=== PATIENT | male | born 1990 | race Caucasian/White ===

== ENCOUNTER 2020-03-02 10:49 | Emergency (ER) | payer BC, OTHER ==
--- NOTE | 2020-03-02 12:22 | TELE ---
HPI Do you have fever,cough or shortness of breath?: No - General Reason For Visit: VIRTUAL VISIT Past History - Travel History Traveled outside of the country in the last 30 days: No Close contact w/someone who was outside of country & ill: No Review of Systems - Review of Systems Able to Perform ROS?: Yes Comments:: 03/02/20 12:44 CONSTITUTIONAL: Absent: fever, chills, diaphoresis, generalized weakness, malaise, loss of appetite HEENT: Absent: rhinorrhea, nasal congestion, throat pain, throat swelling, difficulty swallowing, mouth swelling, ear pain, eye pain, visual Changes CARDIOVASCULAR: Absent: chest pain, loss of consciousness, palpitations, irregular heart rate, peripheral edema RESPIRATORY: Absent: cough, shortness of breath, dyspnea with exertion, orthopnea, wheezing, stridor, hemoptysis GASTROINTESTINAL: Absent: abdominal pain, abdominal distension, nausea, vomiting, diarrhea, constipation, melena, hematochezia SKIN: Absent: rash, itching, pallor NEUROLOGIC: Absent: headache, focal weakness or paresthesias, dizziness, unsteady gait, seizure, mental status changes, bladder or bowel incontinence PSYCHIATRIC: Absent: anxiety, depression, suicidal or homicidal ideation, hallucinations. Limited [place] Citizen proficient: No *Physical Exam - Physical Exam 03/02/20 12:44 GENERAL: Well developed, well nourished. Awake and alert. No acute distress. HEENT: Normocephalic, atraumatic. PERRLA, EOMI. NECK: Supple. Full ROM. PULMONARY: No evidence of respiratory distress. EXTREMITIES: No cyanosis. SKIN: Warm and dry. Normal capillary refill. No rashes. No jaundice. NEUROLOGICAL: Alert, awake, appropriate. PSYCHIATRIC: Cooperative. Good eye contact. Appropriate mood and affect. - Medical Decision Making 03/02/20 12:21 Back line chat initiated and message left on patient's cell phone. No answer at this time. 03/02/20 12:49 Patient returned phone call. Patient presents to virtual urgent care today for a COVID swab. He states he was exposed at work yesterday and would like a swab. Advised that since it is only been 1 day since his exposure the cultures will likely be negative and he should get retested in a week. Patient understands and would still like a test today as well as antibody testing given exposure and he believes he had COVID back in July. He is currently asymptomatic in his usual state of health. A/P: Need for COVID testing No distress on exam. Will order swab and antibody testing. Patient is sent to [facility] Isolation precautions given. Discharge Diagnosis at time of Disposition: Counseled about COVID-19 virus infection - Referrals - Patient Instructions
== END 2020-03-02 12:51 | disposition home or self-care (01) ==
LOC: JVIRT 10:49
DX: Z11.59 Encounter for screening for other viral diseases (principal); Z01.84 Encounter for antibody response examination
CPT/HCPCS: 36415; 86769; C9803; Q3014-GT; U0003

== ENCOUNTER 2020-03-08 09:11 | Emergency (ER) | payer BC, OTHER ==
--- NOTE | 2020-03-08 09:22 | TELE ---
HPI Do you have fever,cough or shortness of breath?: No - General Reason For Visit: COVID 19 TEST Time Seen by Provider: 03/08/20 09:19 History Source: Patient Exam Limitations: No Limitations - History of Present Illness 03/08/20 09:21 HPI: 29-year-old male denies medical history who initiated telehealth visit for COVID-19 testing. Patient states he was possibly exposed 1 week ago and has had a negative test since then but wanted to have a second test to confirm that he is not's positive. Patient denies all symptoms at this time. CONSTITUTIONAL: Absent: fever, chills, diaphoresis, generalized weakness, malaise, loss of appetite HEENT: Absent: rhinorrhea, nasal congestion, throat pain, throat swelling, difficulty swallowing, mouth swelling, ear pain, eye pain, visual changes CARDIOVASCULAR: Absent: chest pain, loss of consciousness, palpitations, irregular heart rate, peripheral edema RESPIRATORY: Absent: cough, shortness of breath, dyspnea with exertion, orthopnea, wheezing, stridor, hemoptysis GASTROINTESTINAL: Absent: abdominal pain, abdominal distension, nausea, vomiting, diarrhea SKIN: Absent: rash, itching, pallor NEUROLOGIC: Absent: headache, focal weakness or paresthesias, dizziness, unsteady gait, seizure, mental status changes, bladder or bowel incontinence PSYCHIATRIC: Absent: anxiety, depression, suicidal or homicidal ideation, hallucinations. GENERAL: Well developed, well nourished. Awake and alert. No acute distress. HEENT: Normocephalic, atraumatic. PERRLA, EOMI. NECK: Supple. Full ROM. PULMONARY: No evidence of respiratory distress. EXTREMITIES: No cyanosis. SKIN: Warm and dry. Normal capillary refill. No rashes. No jaundice. NEUROLOGICAL: Alert, awake, appropriate. PSYCHIATRIC: Cooperative. Good eye contact. Appropriate mood and affect. - Medical Decision Making 03/08/20 09:22 A/P: 29-year-old male with telehealth visit for COVID-19 testing Patient is asymptomatic at this time. COVID-19 testing ordered Discharge Portions of this note have been documented using voice recognition software. As a result, errors may occur in the waterproofing mixer process. Effort has been made to correct all grammatical and waterproofing mixer error, but some may have been missed which may produce sporadic inaccurate waterproofing mixer or nonsensical phrases. Discharge Diagnosis at time of Disposition: Counseled about COVID-19 virus infection - Referrals - Patient Instructions Additional Discharge Instructions: You were tested for COVID today. Please isolate yourself until your test results come back. Guidance has been provided in your discharge papers You should receive a call within 24 to 48 hours from our department with your results. Thank you for using our telehealth service today! - Discharge Disposition: HOME Condition at time of Disposition: Stable
== END 2020-03-08 09:22 | disposition home or self-care (01) ==
LOC: JVIRT 09:11
DX: Z03.818 Encounter for observation for suspected exposure to other biological agents ruled out (principal)
CPT/HCPCS: C9803; Q3014-GT; U0003